=== PATIENT | male | born 1985 | race Caucasian/White ===

== ENCOUNTER 2019-04-05 09:38 | Emergency (ER) | payer SELFPAY ==
[2019-04-05 09:48] VITALS: BP 158/92
[2019-04-05] MEDS ORDERED: Ketorolac *IM* INJ* 60 MG/2 ML VIAL IM ONE (11:18)
--- NOTE | 2019-04-05 11:35 | ED ---
Upper Extremity Pain - HPI Summary HPI Summary: 33-year-old right hand dominant male presents with right shoulder pain and decreased ROM for the last 2-3 months. Pain is located on the anterior aspect of the shoulder. He states that the pain is reproduced with any movement of the right shoulder, and is alleviated when at rest. Has used Tylenol, Ibuprofen, heat, and ice prn since onset which does provide some relief. States he does not remember an injury, but thinks it could be from lifting his child or from the chiropractor. Does not have a job that requires repetitive overhead movements. Admits to having tingling down his right arm that feels like he "hit his funny bone." Denies neck or elbow pain. - History of Current Complaint Chief Complaint: EDShouldJim Stated Complaint: RIGHT SHOULDER/ARM PAIN PER PT Time Seen by Provider: 04/05/19 11:09 Hx Obtained From: Patient Mechanism Of Injury: Unknown Onset/Duration: Started Weeks Ago, Still Present Timing: Constant Severity Initially: Moderate Severity Currently: Moderate Pain Location: Shoulder Character: Aching Aggravating Factor(s): Movement, Lifting, Flexion, Extension, Abduction Alleviating Factor(s): Rest, Ice, OTC Meds, Heat Associated Signs & Symptoms: Positive: Numbness/Tingling - Risk Factors Non-Orthopedic Risk Factor: Negative DVT Risk Factors: Smoking Septic Arthritis Risk Factor: Negative Compartment Syndrome Risk Factors: Pain - Allergies/Home Medications Allergies/Adverse Reactions: Allergies Allergy/AdvReac Type Severity Reaction Status Date / Time No Known Allergies Allergy Verified 12/22/13 14:19 PMH/Surg Hx/FS Hx/Imm Hx Endocrine/Hematology History: Denies: Hx Diabetes, Hx Thyroid Disease Cardiovascular History: Denies: Hx Hypertension Respiratory History: Denies: Hx Asthma, Hx Chronic Obstructive Pulmonary Disease (COPD) GI History: Denies: Hx Ulcer Infectious Disease History: No Infectious Disease History: Reports: Hx of Known/Suspected MRSA - Left Hip, Left Buttock Denies: Hx Hepatitis, Hx Human Immunodeficiency Virus (HIV), History Other Infectious Disease, Traveled Outside the [place] in Last 30 Days - Social History Alcohol Use: Occasionally Substance Use Type: Reports: Marijuana Substance Use Comment - Amount & Last Used: Frequently Smoking Status (MU): Current Some Day Smoker Type: Cigarettes Amount Used/How Often: 2 times a week Review of Systems Constitutional: Negative Negative: Fever, Chills Cardiovascular: Negative Negative: Palpitations, Chest Pain Respiratory: Negative Negative: Shortness Of Breath, Cough Gastrointestinal: Negative Negative: Abdominal Pain, Vomiting, Nausea Genitourinary: Negative Positive: no symptoms reported. Negative: dysuria, frequency Positive: Arthralgia - right shoulder, Decreased ROM. Negative: Myalgia Skin: Negative Negative: Rash, Bruising Neurological: Negative Psychological: Normal Positive: Anxious All Other Systems Reviewed And Are Negative: Yes Physical Exam Triage Information Reviewed: Yes Vital Signs On Initial Exam: Initial Vitals Temp Pulse Resp BP Pulse Ox 97.8 F 84 14 158/92 99 04/05/19 09:46 04/05/19 09:46 04/05/19 09:46 04/05/19 09:46 04/05/19 09:46 Vital Signs Reviewed: Yes Appearance: Positive: Well-Appearing, No Pain Distress, Well-Nourished Skin: Positive: Warm, Skin Color Reflects Adequate Perfusion, Dry Head/Face: Positive: Normal Head/Face Inspection Eyes: Positive: Normal, EOMI, VINCE, Conjunctiva Clear ENT: Positive: Normal ENT inspection, Hearing grossly normal Neck: Positive: Supple, Nontender, No Lymphadenopathy Respiratory/Lung Sounds: Positive: Clear to Auscultation, Breath Sounds Present. Negative: Rales, Rhonchi, Wheezes Cardiovascular: Positive: Normal, RRR, S1, S2. Negative: Murmur, Rub Abdomen Description: Positive: Nontender Bowel Sounds: Positive: Present Musculoskeletal: Positive: Limited @ - Limited AROM right shoulder to 20-30 degrees of flexion, abduction. Full PROM., Other - No eccymosis, erythema, swelling. No bony deformities or signs of trauma. No tenderness to palpation of rotator cuff muscles or bony structures. Neurovascularly intact. Neurological: Positive: Normal, Sensory/Motor Intact, Reflexes Intact Psychiatric: Positive: Normal, Affect/Mood Appropriate Procedures - Sedation Patient Received Moderate/Deep Sedation with Procedure: No Diagnostics - Vital Signs Vital Signs Temp Pulse Resp BP Pulse Ox 04/05/19 09:46 97.8 F 84 14 158/92 99 - Laboratory Lab Statement: Any lab studies that have been ordered have been reviewed, and results considered in the medical decision making process. Course/Dx - Course Course Of Treatment: 33 year old male with 2-3 months of right shoulder pain and decreased ROM. No known injury. Pain exacerbated by movement. No deformities or tenderness noted on exam. Limited AROM. Patient will not move the arm past 20 degrees abduction. Difficulty with flexion and extension. Patient has the majority of his pain in the upper humeral area with some involvement of the shoulder joint. No f/s/c. No tick bites, rashes, erythema or warmth to the area. Otherwise feeling well. No trauma. Sxs began 2-3 mos ago and worse over the past 2 weeks ago. Neurovascularly intact. Full PROM. X- ray: IMPRESSION: DECREASED BONY DENSITY IN THE HUMERUS WITH PATCHY LUCENT AREAS IN THE SUBCHONDRAL BONE FAVORING OSTEOPENIA ALTHOUGH A BONE LESION CANNOT BE EXCLUDED. RECOMMEND AN MRI OF THE SHOULDER FOR FURTHER EVALUATION. Provider called ortho clinic to assure patient will have close f/u with orthopedist. Appt made 1:45pm with Dr. Jeffries on Apr 11. Patient agrees with plan. - Diagnoses Differential Diagnosis/HQI/PQRI: Positive: Fracture (Closed), Strain, Sprain, Other - bony density in humerus, adhesive capsulitis Provider Diagnoses: Shoulder pain Discharge ED - Sign-Out/Discharge Documenting (check all that apply): Patient Departure - Discharge Plan Condition: Stable Disposition: HOME Referrals: Lisandro Jeffries MD [Medical Doctor] - 1 Week (Decreased bony density in the humerus with patchy lucent areas.) No Primary Care Phys,NOPCP [Primary Care Provider] - Additional Instructions: Appt at 1:45pm Apr [address] Jeffries. Please bring your insurance and ID. Continue moist heat and ibuprofen - Billing Disposition and Condition Condition: STABLE Disposition: Home
== END 2019-04-05 13:07 | disposition home or self-care (01) ==
LOC: ED 09:38
DX: M25.511 Pain in right shoulder (principal); R20.2 Paresthesia of skin; Z72.0 Tobacco use
CPT/HCPCS: 96372; 99282; J1885

== ENCOUNTER 2019-05-09 22:05 | Inpatient (IN) | payer OTHER ==
--- OUTSIDE RECORDS SUMMARY | 2019-05-09 22:16 | XMS REPORT | Continuity of Care Document ---
:1985 External Reference #:[id number] Author Name Lisandro Jeffries MD (transmitted by agent of provider Rochelle Medina ) Address [address] [place] [address] Care Team Providers Name Role Phone Patient's Choice Care Team Information Immunologist Unavailable Problems Description No Information Available Social History Type Date Description Comments Sex Unknown Tobacco Use Start: Unknown Never Smoked Cigarettes Smoking Status Reviewed: 05/04/19 Never Smoked Cigarettes ETOH Use Currently consumes alcohol Tobacco Use Start: Unknown Patient has never smoked Exercise Type/Frequency Exercises sporadically Allergies, Adverse Reactions, Alerts Description No Known Drug Allergies Medications History Medications SIG Qnty Indications Ordering Provider Date No Active Medications Unknown 04/11/2019 - 04/11/2019 History Medications Medrol As directed on 1units Toney Avila MD 04/11/2019 - 4mg TBPK package 05/03/2019 Medications Administered in Office Medication SIG Qnty Indications Ordering Provider Date No Injection Lisandro Jeffries MD 05/04/2019 Injection Depomedrol 40MG Lisandro Jeffries MD 05/04/2019 Injection Immunizations Description No Information Available Vital Signs Date Vital Result Comment 05/04/2019 3:50pm Height 68 inches 5'8" Weight 150.00 lb Heart Rate 96 /min BP Systolic 120 mmHg BP Diastolic 74 mmHg Respiratory Rate 14 /min Body Temperature 97.0 F Pain Level 0 BMI (Body Mass Index) 22.8 kg/m2 04/11/2019 2:11pm Height 68 inches 5'8" Weight 158.75 lb Heart Rate 72 /min BP Systolic 126 mmHg BP Diastolic 76 mmHg Respiratory Rate 14 /min Pain Level 0 increases with movement BMI (Body Mass Index) 24.1 kg/m2 Results Description No Information Available Procedures Description No Information Available Medical Devices Description No Information Available Encounters Type Date Location Provider Dx Diagnosis Office Visit 04/11/2019 [facility] Lisandro Prather M25.511 Pain in right 1:45p at Joselin Jeffries MD shoulder Assessments Date Code Description Provider 05/04/2019 S43.014D Anterior dislocation of right humerus, Lisandro Jeffries MD subsequent encounter 04/11/2019 M25.511 Pain in right shoulder Lisandro Jeffries MD Plan of Treatment Future Appointment(s):05/30/2019 10:45 am - Lisandro Jeffries MD at [facility] at [id number]/04/2019 - Lisandro Jeffries, MDS43.014D Anterior dislocation of right humerus, subsequent encounterNew Therapy:Physical TherapyFollow up:Follow up: 4 weeks Functional Status Description No Information Available Mental Status Description No Information Available Referrals Description No Information Available
--- NOTE | 2019-05-09 22:29 | ED ---
Psychiatric Complaint - HPI Summary HPI Summary: 33 y/o male presented to [facility] after psychiatric complaint of thoughts of self harm present [employer]OW [employer]AT and correlated with a breakup of his marriage as well as other stressful life events. He has had no alcohol tonight and is on no medications. He is not receiving mental health treatment currently. He has no known allergies to medicine, has never been hospitalized for mental health reasons, and has a Hx of a dislocated shoulder from earlier today. - History Of Current Complaint Chief Complaint: EDMentalHealth Time Seen by Provider: 05/09/19 22:21 Hx Obtained From: Patient Onset/Duration: Still Present Character: Depressed - self harm Aggravating Factor(s): Recent Stress Alleviating Factor(s): Nothing Associated Signs And Symptoms: Positive: Negative Has Suicidal: Reports: Thoughts - self harm - Allergies/Home Medications Allergies/Adverse Reactions: Allergies Allergy/AdvReac Type Severity Reaction Status Date / Time No Known Allergies Allergy Verified 05/09/19 22:13 PMH/Surg Hx/FS Hx/Imm Hx Endocrine/Hematology History: Denies: Hx Diabetes, Hx Thyroid Disease Cardiovascular History: Denies: Hx Hypertension, Hx Pacemaker/ICD Respiratory History: Denies: Hx Asthma, Hx Chronic Obstructive Pulmonary Disease (COPD) GI History: Denies: Hx Ulcer History: Denies: Hx Dialysis, Hx Renal Disease Sensory History: Denies: Hx Hearing Aid Psychiatric History: Denies: Hx Panic Disorder Infectious Disease History: No Infectious Disease History: Reports: Hx of Known/Suspected MRSA - Left Hip, Left Buttock Denies: Hx Hepatitis, Hx Human Immunodeficiency Virus (HIV), History Other Infectious Disease, Traveled Outside the [place] in Last 30 Days - Family History Known Family History: Positive: Hypertension - father, Diabetes - father - Social History Alcohol Use: Occasionally Substance Use Type: Reports: Marijuana Substance Use Comment - Amount & Last Used: Frequently Smoking Status (MU): Current Some Day Smoker Type: Cigarettes Amount Used/How Often: 2 times a week Review of Systems Negative: Fever - vitals show temp at 98.9F Positive: Depressed - thoughts of self harm All Other Systems Reviewed And Are Negative: Yes Physical Exam - Summary Physical Exam Summary: Appearance: Well-appearing, Well-nourished, lying in bed comfortable Skin: Warm, dry, no obvious rash Eyes: sclera anicteric, no conjunctival pallor ENT: mucous membranes moist Neck: deferred Respiratory: No signs of respiratory distress Cardiovascular: Appears well perfused, pulses are nml Abdomen: deferred Musculoskeletal: Moving all 4 extremities without obvious discomfort Neurological: Awake and alert, mentation is normal, speech is fluent and appropriate Psychiatric: affect is normal, does not appear anxious or depressed Triage Information Reviewed: Yes Vital Signs On Initial Exam: Initial Vitals Temp Pulse Resp BP Pulse Ox 98.9 F 82 16 157/83 96 05/09/19 22:06 05/09/19 22:06 05/09/19 22:06 05/09/19 22:06 05/09/19 22:06 Vital Signs Reviewed: Yes Procedures - Sedation Patient Received Moderate/Deep Sedation with Procedure: No Diagnostics - Vital Signs Vital Signs Temp Pulse Resp BP Pulse Ox 05/09/19 22:06 98.9 F 82 16 157/83 96 - Laboratory Result Diagrams: 05/09/19 22:46 05/09/19 22:46 Lab Statement: Any lab studies that have been ordered have been reviewed, and results considered in the medical decision making process. Re-Evaluation - Re-Evaluation First Eval Re-Evaluation Time: 00:50 Comment: Dr. Cruz cleared pt for MHE. Course/Dx - Course Course Of Treatment: 33 y/o male presented to [facility] after psychiatric complaint of thoughts of self harm present [employer] FL[employer]AT and correlated with a breakup of his marriage as well as other stressful life events. He has had no alcohol tonight and is on no medications. He is not receiving mental health treatment currently. Exam was normal. Bloodwork showed RBC H, MPV L, and glucose H. Pt was cleared for MHE at [address] Cruz. At 0600 Dr. Braden finished MHE and diagnosed the pt with major depression. At 0612 Dr. Cruz was informed of pt transfer to another psychiatric facility. Patient is signed out to Dr. De Jesus at 0700 05/10/19 pending MH transfer. - Differential Dx/Clinical Impression Provider Diagnosis: Major depression - Physician Notifications Discussed Care Of Patient With: Manuel Braden Time Discussed With Above Provider: 06:00 Instructed by Provider To: Other - At 0600 Dr. Braden finished MHE and diagnosed the pt with major depression. At 0612 Dr. Cruz was informed of pt transfer to another psychiatric facility. Discharge ED - Sign-Out/Discharge Documenting (check all that apply): Sign-Out Patient Signing out patient TO: Daron De Jesus - Discharge Plan Condition: Stable Disposition: [facility]CHIATRIC FACILITY[facility] - Billing Disposition and Condition Condition: STABLE Disposition: Psychiatric Facility [facility] - Attestation Statements Document Initiated by Fanie: Yes Documenting Scribe: OMAR ALVARADO Provider For Whom Liana is Documenting (Include Credential): DIANE CRUZ MD Scribe Attestation: OMAR Bryson, scribed for DIANE CRUZ MD on at 0112. Scribe Documentation Reviewed: Yes Provider Attestation: The documentation as recorded by the liana, OMAR ALVARADO accurately reflects the service I personally performed and the decisions made by DIANE meléndez MD Status of Scribe Document: Viewed
[2019-05-09 22:51] LABS: ABS Basophils 0.1 10^3/ul (0-0.2); ABS Eosinophils 0.1 10^3/ul (0-0.6); ABS Lymphocytes 1.6 10^3/ul (1.0-4.8); ABS Monocytes 0.8 10^3/ul (0-0.8); ABS Neutrophils 7.3 10^3/ul (1.5-7.7); Eosinophil % 1.5 %; Hematocrit 46 % (42-52); Hemoglobin 16.1 g/dL (14.0-18.0); Lymphocyte % 15.8 %; Mean Corpuscular HGB Conc 35 g/dL (31-36); Mean Corpuscular Hemoglobin 29 pg (27-31); Mean Corpuscular Volume 81 fL (80-94); Nucleated Red Blood Cells % 0.1; Platelet Count 302 10^3/uL (150-450); Red Cell Distribution Width 15 % (10-15); White Blood Count 9.9 10^3/uL (3.5-10.8)
[2019-05-09 23:08] LABS: ALT 26 U/L (7-52); AST 15 U/L (13-39); Albumin 4.5 g/dL (3.2-5.2); Alkaline Phosphatase 42 U/L (34-104); Anion Gap 7 mmol/L (2-11); BUN/Creatinine Ratio 17.1 (8-20); Blood Urea Nitrogen 12 mg/dL (6-24); CO2 Carbon Dioxide 27 mmol/L (22-32); Calcium 9.4 mg/dL (8.6-10.3); Chloride 104 mmol/L (101-111); EGFR African American 155.3 (>60); EGFR Non-African American 128.3 (>60); Globulin 2.2 g/dL (2-4); Glucose 117 mg/dL (70-100); Potassium 3.8 mmol/L (3.5-5.0); Sodium 138 mmol/L (135-145); Total Protein 6.7 g/dL (6.4-8.9)
[2019-05-09 23:26] LABS: Acetaminophen < 15 mcg/mL; Alcohol < 10 mg/dL (<10); Salicylate < 2.50 mg/dL (<30)
[2019-05-09 23:41] LABS: TSH (Thyroid Stimulating Horm) 2.61 mcIU/mL (0.34-5.60)
[2019-05-09 23:45] LABS: HIV 4th Generation Nonreactive (Nonreactive)
[2019-05-10 02:29] LABS: Urine Appearance Clear; Urine Bilirubin Negative (Negative); Urine Blood Negative (Negative); Urine Color Yellow; Urine Glucose Negative (Negative); Urine Ketones Negative (Negative); Urine Nitrite Negative (Negative); Urine Protein Negative (Negative); Urine Specific Gravity 1.014 (1.010-1.030); Urine Urobilinogen Negative (Negative)
[2019-05-10 02:45] LABS: Urine Benzodiazepine Screen None Detected (None Detect); Urine Opiates Screen None Detected (None Detect)
--- NOTE | 2019-05-10 07:09 | ED ---
Progress - Progress Note Progress Note: Patient is a sign-out at 07:00 on 05/10/[address] Kb Cruz MD to Dr. Daron De Jesus MD at shift change, pending transfer to a psychiatric facility. At 10:13, gas line installer reports that patients case was reviewed by Dr. Mal Gaffney who will admit the patient to [facility] with a diagnosis of major depressive disorder. Patient will be admitted to [facility] with a diagnosis of major depressive disorder. Re-Evaluation - Re-Evaluation First Eval Re-Evaluation Time: 00:50 Change: Unchanged Comment: Dr. Cruz cleared pt for MHE. Course/Dx - Course Course Of Treatment: 33 y/o male presented to [facility] after psychiatric complaint of thoughts of self harm present [employer] and correlated with a breakup of his marriage as well as other stressful life events. He has had no alcohol tonight and is on no medications. He is not receiving mental health treatment currently. Exam was normal. Bloodwork showed RBC H, MPV L, and glucose H. Pt was cleared for MHE at [address] Cruz. At 0600 Dr. Braden finished MHE and diagnosed the pt with major depression. At 0612 Dr. Cruz was informed of pt transfer to another psychiatric facility. Patient is signed out to Dr. De Jesus at 0700 05/10/[address] Gaffney reports and that the patient will be admitted to his services and [facility] with a diagnosis of depressive disorder. - Diagnoses Provider Diagnoses: Major depression - Provider Notifications Discussed Care Of Patient With: Mal Gaffney - At 10:13, gas line installer reports that patients case was reviewed by Dr. Mal Gaffney who will admit the patient to [facility] with a diagnosis of major depressive disorder. Time Discussed With Above Provider: 10:13 Instructed by Provider To: Admit As Inpatient - At 0600 Dr. Braden finished MHE and diagnosed the pt with major depression. At 0612 Dr. Cruz was informed of pt transfer to another psychiatric facility. Discharge ED - Sign-Out/Discharge Documenting (check all that apply): Patient Departure - Admit, Receiving Sign- Out Receiving patient FROM: Kb Cruz - Patient is a sign-out at 07:00 on 05/[address] Kb Cruz MD to Dr. Daron De Jesus MD at shift change, pending transfer to a psychiatric facility. - Discharge Plan Condition: Stable Disposition: PSYCHIATRIC FACILITY-[facility] - Billing Disposition and Condition Condition: STABLE Disposition: Psychiatric Facility [facility] - Attestation Statements Document Initiated by Scribe: Yes Documenting Scribe: Mary Giraldo Provider For Whom Scribe is Documenting (Include Credential): Daron De Jesus MD Scribe Attestation: IMary, scribed for Daron De Jesus MD on 05/10/19 at 1837. Scribe Documentation Reviewed: Yes Provider Attestation: The documentation as recorded by the Mary gaines accurately reflects the service I personally performed and the decisions made by , Daron De Jesus MD Status of Scribe Document: Viewed
[2019-05-10] MEDS ORDERED: Al Hydrox/Mg Hydrox/Simet LIQ* 30 ML UDC PO PRN (09:59)
[2019-05-10] MEDS ORDERED: hydrOXYzine HCL TAB* 50 MG PO PRN (10:01)
[2019-05-10] MEDS: Acetaminophen TAB* 325 MG PO PRN ×2 (16:10→20:50)
[2019-05-11 08:11] LABS: HDL Cholesterol 38.4 mg/dL
[2019-05-11] MEDS: Acetaminophen TAB* 325 MG PO PRN ×2 (08:27→20:31)
[2019-05-11] MEDS ORDERED: Influenza VAC *QUAD* 2019-20* 0.5 ML SYRINGE IM ONE (09:00)
[2019-05-11] MEDS: Escitalopram * 5 MG TAB PO SCH (11:49)
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
[2019-05-12] MEDS: Escitalopram * 5 MG TAB PO SCH (09:18)
[2019-05-12] MEDS: Acetaminophen TAB* 325 MG PO PRN ×2 (09:18→21:09)
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
--- NOTE | 2019-05-12 13:09 | PN ---
BSU: Group Therapy Note - Service Type Service Type: [id number] Group Psychotherapy - Cognitive Behavioral Group Therapy ( CBT):Patient attended CBT programming this morning and presented with flat affect that did not vary with discussion. Although responsive to direct prompts to respond to questions, patient did not engage in spontaneous conversation.
[2019-05-12] MEDS: traZODone TAB* 50 MG TAB PO PRN (21:10)
[2019-05-13] MEDS: Acetaminophen TAB* 325 MG PO PRN ×2 (09:10→21:45)
[2019-05-13] MEDS: Escitalopram * 5 MG TAB PO SCH (09:11)
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
[2019-05-13] MEDS: traZODone TAB* 50 MG TAB PO PRN (21:45)
[2019-05-14] MEDS: Escitalopram * 5 MG TAB PO SCH (09:04)
[2019-05-14] MEDS: Acetaminophen TAB* 325 MG PO PRN ×2 (09:05→21:19)
[2019-05-14] MEDS: traZODone TAB* 50 MG TAB PO PRN (21:19)
[2019-05-15] MEDS: Escitalopram * 5 MG TAB PO SCH (08:39)
[2019-05-15] MEDS: Acetaminophen TAB* 325 MG PO PRN ×2 (08:40→21:00)
--- NOTE | 2019-05-15 12:26 | PN ---
BSU: Group Therapy Note - Service Type Service Type: 53320 Group Psychotherapy - Cognitive Behavioral Group Therapy ( CBT):Patient was attentive and participatory in CBT programming this morning, and remained in good behavioral control. Patient expressed positive insights regarding relevant treatment interventions and goals.
--- NOTE | 2019-05-15 12:26 | PN ---
BSU: Group Therapy Note - Service Type Service Type: 51936 Group Psychotherapy - Cognitive Behavioral Group Therapy ( CBT):Patient was attentive and participatory in CBT programming this morning, and remained in good behavioral control. Patient expressed positive insights regarding relevant treatment interventions and goals.
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
[2019-05-15] MEDS: traZODone TAB* 50 MG TAB PO PRN (21:00)
[2019-05-16] MEDS ORDERED: Escitalopram * 10 MG TAB PO SCH (09:00)
[2019-05-16] MEDS: Acetaminophen TAB* 325 MG PO PRN (10:06)
[2019-05-16 10:37] VITALS: BP 121/64
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
== END 2019-05-16 14:20 | disposition home or self-care (01) | DRG 751 ==
LOC: ED 22:05 → BSU 05-10 09:59
PROVIDERS: ADMIT Psychiatry & Neurology Psychiatry; ATTEND Psychiatry & Neurology Psychiatry
PROC: GZHZZZZ Group Psychotherapy (ICD-10-PCS; principal; 2019-05-12)
DX: F33.2 Major depressive disorder, recurrent severe without psychotic features (principal); R45.851 Suicidal ideations; F43.10 Post-traumatic stress disorder, unspecified; F64.0 Transsexualism; Z62.810 Personal history of physical and sexual abuse in childhood; F17.210 Nicotine dependence, cigarettes, uncomplicated; Z56.0 Unemployment, unspecified; Z23 Encounter for immunization
CPT/HCPCS: 36415; 80053; 80061; 80307; 80320; 80329; 81003; 83036; 84443; 85025; 87389; 90686; 90853; 99222; 99231; 99238; 99284; A9270-GY; G0480